=== PATIENT | female | born 1970 | race Caucasian/White ===

== ENCOUNTER → 2022-10-21 08:12 | Outpatient (BNVA) | payer MEDICARE, MEDICAID, SELFPAY | PROVIDERS: Referring Provider Specialist; Visit Provider Specialist | DX: R56.9 Unspecified convulsions (principal) | CPT/HCPCS: 95812 ==

== ENCOUNTER → 2022-11-03 09:57 | Outpatient (BNVA) | payer MEDICARE, MEDICAID, SELFPAY | PROVIDERS: PCP Family Medicine; Referring Provider Ophthalmology; Visit Provider Specialist | DX: R56.9 Unspecified convulsions (principal); R53.83 Other fatigue; E03.8 Other specified hypothyroidism; R60.9 Edema, unspecified; G43.711 Chronic migraine without aura, intractable, with status migrainosus; Z79.891 Long term (current) use of opiate analgesic | CPT/HCPCS: 99205 ==

== ENCOUNTER → 2022-11-10 10:17 | Outpatient (BNVA) | payer MEDICARE, MEDICAID, SELFPAY | PROVIDERS: PCP Family Medicine; Visit Provider Specialist | DX: R56.9 Unspecified convulsions (principal) | CPT/HCPCS: 95812 ==

== ENCOUNTER 2022-11-12 15:52 | Emergency (ER) | payer MEDICARE, SELFPAY ==
[2022-11-12 16:03] VITALS: BP 120/78; PULSE 83; RESP 18; TEMP 36.6; O2SAT 96; BMI 22.6
--- NOTE | 2022-11-12 18:30 | ECG_ITS ---
Test Date: 2022-11-12 Pat Name: Brittny Starks Department: Room: Gender: Female Retail Support Associate: : 1970 Requested By: Ying Grant Order Number: [id number] Marlon MD: Hilaria Calvin M.D. Measurements Intervals [place] Rate: 70 P: 63 PA: 168 QRS: 74 QRSD: 94 T: 55 QT: 390 QTc: 421 Interpretive Statements SINUS RHYTHM No previous ECG available for comparison Electronically Signed On 11-12-2022 23:56:15 CDT by Hilaria Calvin M.D. [id number]
--- NOTE | 2022-11-12 18:30 | XRR_ITS ---
PROCEDURE INFORMATION: Exam: XR Chest Exam date and time: 11/12/2022 6:34 PM Age: 52 years old Clinical indication: Shortness of breath; Additional info: SOB TECHNIQUE: Imaging protocol: Radiologic exam of the chest. Views: 1 view. COMPARISON: No relevant prior studies available. FINDINGS: Tubes, catheters and devices: Spinal stimulator leads noted within the thoracic spine. Lungs: Linear opacities noted at the lung bases. Pleural spaces: No pleural effusion. No pneumothorax. Heart/Mediastinum: No cardiomegaly. Bones/joints: Visualized osseous structures are intact. Partially visualized ACDF hardware noted in the cervical spine. XR/XR chest 1V portable [id number] IMPRESSION: Linear opacities noted at the lung bases. This could reflect atelectasis or scarring with infiltrates not excluded.
[2022-11-12 19:27] LABS: Basophils # 0.1 10^3/uL (0.0-0.1); Basophils % 0.9 %; Eosinophils # 0.2 10^3/uL (0.0-0.8); Eosinophils % 2.3 %; Hematocrit 45.3 % (37.0-47.0); Hemoglobin 14.2 g/dL (11.5-15.3); Lymphocytes # 1.8 10^3/uL (0.8-4.8); Lymphocytes % 23.1 %; Mean Corpuscular HGB Conc 31.3 g/dL (30.0-36.0); Mean Corpuscular Hemoglobin 28.9 pg (28.0-34.0); Mean Corpuscular Volume 92.3 fl (81-99); Mean Platelet Volume 9.3 fL (7.4-10.4); Monocytes # 0.5 10^3/uL (0.2-0.9); Monocytes % 5.9 %; Neutrophils # 5.22 10^3/uL (1.8-7.7); Neutrophils % 67.4 %; Nucleated Red Blood Cells % 0 %; Platelet Count 303 10^3/cmm (130-400); Red Blood Count 4.91 10^6/uL (4.1-5.3); Red Cell Distribution Width 14.3 % (12.1-15.1); White Blood Count 7.8 10^3/uL (4.0-10.0)
[2022-11-12 20:01] LABS: Alanine Aminotransferase < 5 U/L (0-33); Albumin Level 3.8 g/dL (3.5-5.2); Alkaline Phosphatase 118 U/L (35-105); Anion Gap 15.2 (5-19); Aspartate Amino Transferase 11 U/L (0-32); Blood Urea Nitrogen 6 mg/dL (6-20); Calcium 8.6 mg/dL (8.5-10.5); Carbon Dioxide 31 mmol/L (22-29); Chloride 94 mmol/L (98-107); Creatinine Clr Calc Pharmacy 89.4754; Globulin 2.9 g/dL (1.3-4.6); Glomerular Filtration Rate 87.5 mL/min (90-130); Glucose 108 mg/dL (65-115); NT Pro B Type Natriuretic Pept 357 pg/mL (0-125); Osmolality Calculated 280 mOsm/kg (285-295); Potassium 4.2 mmol/L (3.5-5.1); Sodium 136 mmol/L (136-145); Total Bilirubin 0.2 mg/dL (0.15-1.2); Total Protein 6.7 g/dL (6.6-8.7)
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
[2022-11-12 20:17] VITALS: BP 162/85; PULSE 75; RESP 16; O2SAT 94
[2022-11-12] MEDS: FUROsemide 10 mg/mL SDV 4mL 40 MG IM (20:27)
[2022-11-12] MEDS: morphine 4 mg/mL SDV 1 mL IM (20:27)
[2022-11-12 20:57] VITALS: PULSE 73; RESP 18; O2SAT 93
[2022-11-12 21:12] VITALS: BP 141/75; PULSE 79; RESP 16; O2SAT 94
== END 2022-11-12 21:13 | disposition home or self-care (01) ==
PROVIDERS: Emergency Medicine; Emergency Provider Nurse Practitioner Family; PCP Family Medicine
DX: J44.9 Chronic obstructive pulmonary disease, unspecified (principal); R60.0 Localized edema; I50.9 Heart failure, unspecified
CPT/HCPCS: 36415; 71045; 80053; 83880; 85025; 93005; 94640; 96372; 99285; J1940; J2270

== ENCOUNTER 2022-12-04 16:03 | Outpatient (CLI) | payer MEDICARE, SELFPAY ==
--- NOTE | 2022-12-04 16:30 | CT_ITS ---
WS: [id number] CT HEAD TECHNIQUE: Noncontrast CT of the head obtained from the skullbase to the vertex. CLINICAL INFORMATION: R56.9 - Unspecified convulsions COMPARISON: None. DLP: 1109.[address] scans at [facility] use at least one of these dose optimization techniques: automated e xposure control; mA and/or kV adjustment per patient size (includes targeted exams where dose is matc hed to clinical indication); or iterative reconstruction. FINDINGS: No evidence of intracranial hemorrhage or mass effect. Ventricular system and basal cisterns are pink nt. Mild small vessel changes with mild parenchymal volume loss. Intracranial vascular calcification. No extra-axial fluid collections. No evidence of mass or mass effect. Mild mucosal thickening ethmoid air cells. Mastoid air cells well aerated. Mild mucosal thickening LE FT mastoid tip. Normal posterior nasopharynx. CT/CT head wo con* [id number] IMPRESSION: 1. No evidence of intracranial hemorrhage or mass effect. 2. Intracranial vascular calcification. 3. Mild small vessel changes. Mild parenchymal volume loss. 4. No acute intracranial findings.
== END 2022-12-04 16:04 | disposition home or self-care (01) ==
PROVIDERS: PCP Family Medicine; Visit Provider Specialist
DX: R56.9 Unspecified convulsions (principal)
CPT/HCPCS: 36415; 70450; 80053; 82607; 84443; 85025; 85651; 86038

== ENCOUNTER → 2022-12-31 09:21 | Outpatient (BNVA) | payer MEDICARE, SELFPAY | PROVIDERS: PCP Family Medicine; Visit Provider Specialist | DX: G43.711 Chronic migraine without aura, intractable, with status migrainosus (principal); R56.9 Unspecified convulsions; G62.9 Polyneuropathy, unspecified; R60.0 Localized edema; Z87.891 Personal history of nicotine dependence; Z96.82 Presence of neurostimulator | CPT/HCPCS: 99215 ==